=== PATIENT | male | born 1985 | race African-American/Black ===

== ENCOUNTER 2018-01-15 03:59 | Emergency (ER) | payer SELFPAY ==
[~2018-01-15] VITALS: Ht 172.7 cm; Wt 68.0 kg
[2018-01-15 08:20] VITALS: BP 115/68
[2018-01-15 08:51] LABS: Urine Bacteria NONE SEEN /hpf (None Seen); Urine Blood Negative /uL (Negative); Urine Mucus FEW (None Seen); Urine Specific Gravity 1.014 (1.001-1.035); Urine WBC 43 /hpf (0 - 3)
[2018-01-15 09:15] LABS: Amphetamine Screen, Urine NEGATIVE (NEGATIVE); Barbiturate Scree,Urine NEGATIVE (NEGATIVE); Benzodiazephine Screen, Urine NEGATIVE (NEGATIVE); Cannabinoid Screen, Urine POSITIVE (NEGATIVE); Cocaine Screen, Urine NEGATIVE (NEGATIVE); Opiate Scree,Urine NEGATIVE (NEGATIVE); Phencyclidine Screen, Urine NEGATIVE (NEGATIVE)
== END 2018-01-15 09:03 | disposition home or self-care (01) ==
LOC: EDBD 03:59 → ER 04:04
DX: M25.561 Pain in right knee (principal)
CPT/HCPCS: 73562; 74176; 80307; 81001